=== PATIENT | male | born 1975 | race Caucasian/White ===

== ENCOUNTER 2018-10-04 10:19 | Inpatient (IN) | payer BC, OTHER ==
[~2018-10-04] VITALS: Ht 185.4 cm; Wt 93.9 kg
[2018-10-04 07:00] VITALS: BP_SYST 137
[2018-10-04 10:25] VITALS: BP_SYST 144
[2018-10-04] MEDS ORDERED: NACL 0.9% 1,000 ML IV ONE ×2 (10:35→14:30)
[2018-10-04] MEDS ORDERED: MORPHINE 4 MG/ML INJ. SYRINGE IVP ONE ×2 (10:45→13:30)
[2018-10-04 11:03] LABS: RED BLOOD CELL COUNT(AUTO) 5.08 MIL/uL (4.2-6.2); WHITE BLOOD COUNT (AUTO) 7.8 K/uL (4.8-10.8)
[2018-10-04 11:04] LABS: BASOPHILS % (AUTO) 0.5 % (0.0-2.0); EOSINOPHILS % (AUTO) 0.5 % (0.0-4.0); HEMATOCRIT 44.7 % (36-54); LYMPHOCYTES % (AUTO) 19.9 % (20.5-51.5); MEAN CORPUSCULAR HEMOGLOBIN 30 pg (27-31); MEAN CORPUSCULAR HGB CONC 34 % (32-36); MEAN CORPUSCULAR VOLUME 88 fL (79.0-98.0); MONOCYTES % (AUTO) 6.5 % (1.7-9.3); NEUTROPHILS % (AUTO) 72.6 % (40.0-70.0); PLATELET COUNT (AUTO) 276 K/uL (130-430); RED CELL DISTRIBUTION WIDTH 12.8 % (9.0-15.0)
[2018-10-04 11:05] LABS: LYMPHOCYTES # (AUTO) 1.6 K/uL (1.0-5.5); MONOCYTES # (AUTO) 0.5 K/uL (0.0-1.0); NEUTROPHILS # (AUTO) 5.7 K/uL (1.8-7.7)
[2018-10-04 11:12] LABS: CALCIUM 8.7 mg/dL (8.4-11.0); CREATININE 0.81 mg/dL (0.55-1.30); POTASSIUM 3.9 mmol/L (3.5-5.1)
[2018-10-04 11:16] LABS: ALBUMIN 3.9 g/dL (3.4-4.8); TOTAL BILIRUBIN 0.2 mg/dL (0.0-1.0)
[2018-10-04 11:21] LABS: PROTHROMBIN TIME 10.4 SECS (9.5-12.5)
[2018-10-04] MEDS ORDERED: GADOPENTETATE DIMEGLUMINE 15 ML VIAL IV ONE (11:38)
[2018-10-04 16:08] LABS: BILIRUBIN,URINE NEGATIVE (NEGATIVE); BLOOD, URINE NEGATIVE (NEGATIVE); CLARITY/URINE CLEAR (CLEAR); COLOR,URINE YELLOW (YELLOW); GLUCOSE,URINE NEGATIVE (NEGATIVE); KETONES,URINE NEGATIVE (NEGATIVE); LEUKOCYTE ESTERASE ,URINE NEGATIVE (NEGATIVE); NITRITE, URINE NEGATIVE (NEGATIVE); PH,URINE 6.5 (5.0-8.0); PROTEIN URINE NEGATIVE (NEGATIVE); UROBILINOGEN,URINE 0.2 (0.2-1.0)
[2018-10-04] MEDS ORDERED: VENL75CA PO (16:31)
[2018-10-04] MEDS ORDERED: DEXAMETHASONE SOD PHOSPHATE 10 MG/ML VIAL IVP ONE (16:45)
[2018-10-04] MEDS ORDERED: DEXAMETHASONE SOD PHOSPHATE 10 MG/ML VIAL ONE (16:54)
[2018-10-04 20:54] VITALS: BP_SYST 142
[2018-10-04] MEDS: MORPHINE 4 MG/ML INJ. SYRINGE IVP PRN (22:02)
[2018-10-04] MEDS ORDERED: ONDANSETRON HCL 4 MG/2 ML VIAL IVP PRN (23:30)
[2018-10-04] MEDS ORDERED: ACETAMINOPHEN 325 MG TABLET PO PRN (23:30)
[2018-10-05 00:09] VITALS: BP_SYST 114; BP_SYST 137
[2018-10-05] MEDS: MORPHINE 4 MG/ML INJ. SYRINGE IVP PRN ×3 (01:16→08:29)
[2018-10-05] MEDS ORDERED: DEXAMETHASONE SOD PHOSPHATE 4 MG/ML VIAL IVP ONE (04:30)
[2018-10-05 06:16] LABS: ALBUMIN 3.7 g/dL (3.4-4.8); CALCIUM 8.6 mg/dL (8.4-11.0); CREATININE 0.79 mg/dL (0.55-1.30); POTASSIUM 4.2 mmol/L (3.5-5.1); TOTAL BILIRUBIN 0.2 mg/dL (0.0-1.0)
[2018-10-05] MEDS: IPRATROPIUM BROM 0.5 MG/2.5 ML VIAL.NEB (ATROVENT) INH SCH ×2 (07:00→11:00)
[2018-10-05 08:20] VITALS: BP_SYST 106
[2018-10-05 08:40] LABS: HEMATOCRIT 43.3 % (36-54); HEMOGLOBIN 14.7 g/dL (14.0-18.0); MEAN CORPUSCULAR HEMOGLOBIN 30 pg (27-31); MEAN CORPUSCULAR HGB CONC 34 % (32-36); MEAN CORPUSCULAR VOLUME 88 fL (79.0-98.0); NEUTROPHILS % (AUTO) 84.3 % (40.0-70.0); PLATELET COUNT (AUTO) 293 K/uL (130-430); RED BLOOD CELL COUNT(AUTO) 4.93 MIL/uL (4.2-6.2); RED CELL DISTRIBUTION WIDTH 13.1 % (9.0-15.0); WHITE BLOOD COUNT (AUTO) 10.5 K/uL (4.8-10.8)
[2018-10-05 08:41] LABS: BASOPHILS % (AUTO) 0.1 % (0.0-2.0); EOSINOPHILS % (AUTO) 0.1 % (0.0-4.0); LYMPHOCYTES # (AUTO) 1.2 K/uL (1.0-5.5); LYMPHOCYTES % (AUTO) 11.1 % (20.5-51.5); MONOCYTES # (AUTO) 0.5 K/uL (0.0-1.0); MONOCYTES % (AUTO) 4.4 % (1.7-9.3); NEUTROPHILS # (AUTO) 8.8 K/uL (1.8-7.7)
[2018-10-05] MEDS: Effexor XR 37.5 MG PO SCH (09:28)
[2018-10-05 11:35] VITALS: BP_SYST 138
[2018-10-05] MEDS ORDERED: PREGABALIN 25 MG CAPSULE (LYRICA) PO ONE (12:30)
[2018-10-05] MEDS: OXYCODONE/ACETAMINOPHEN 5-325 TABLET PO PRN ×3 (12:49→21:13)
[2018-10-05] MEDS ORDERED: IPRATROPIUM BROM 0.5 MG/2.5 ML VIAL.NEB (ATROVENT) INH PRN (13:00)
[2018-10-05 15:47] VITALS: BP_SYST 125
[2018-10-05] MEDS ORDERED: PHENYLEPH/MINERAL OIL/PETROLAT 45 GM OINT.APPL TP PRN (16:45)
[2018-10-05] MEDS: DEXAMETHASONE SOD PHOSPHATE 10 MG/ML VIAL IVP SCH (16:58)
[2018-10-05 20:05] VITALS: BP_SYST 127
[2018-10-06] VITALS (7 sets, daily range): BP systolic 116–130
[2018-10-06] MEDS: DEXAMETHASONE SOD PHOSPHATE 10 MG/ML VIAL IVP SCH ×5 (05:22→23:43)
[2018-10-06] MEDS: OXYCODONE/ACETAMINOPHEN 5-325 TABLET PO PRN ×5 (05:26→23:42)
[2018-10-06] MEDS: PREGABALIN 25 MG CAPSULE (LYRICA) PO SCH (08:46)
[2018-10-06] MEDS: Effexor XR 37.5 MG PO SCH (08:48)
[2018-10-06] MEDS ORDERED: DOCUSATE SODIUM 250 MG CAPSULE PO ONE (13:00)
[2018-10-06] MEDS: DOCUSATE SODIUM 250 MG CAPSULE PO SCH (21:18)
[2018-10-07 00:27] VITALS: BP_SYST 125
[2018-10-07] MEDS: DEXAMETHASONE SOD PHOSPHATE 10 MG/ML VIAL IVP SCH ×2 (06:05→11:12)
[2018-10-07 08:04] VITALS: BP_SYST 128
[2018-10-07] MEDS: DOCUSATE SODIUM 250 MG CAPSULE PO SCH (08:07)
[2018-10-07] MEDS: PREGABALIN 25 MG CAPSULE (LYRICA) PO SCH (08:07)
[2018-10-07] MEDS: Effexor XR 37.5 MG PO SCH (08:08)
[2018-10-07 09:04] VITALS: BP_SYST 125; BP_SYST 128
[2018-10-07] MEDS: OXYCODONE/ACETAMINOPHEN 5-325 TABLET PO PRN (10:15)
[2018-10-07] MEDS ORDERED: DEC4 PO (12:42)
[2018-10-07] MEDS ORDERED: LYR25 PO (12:42)
[2018-10-07 12:46] VITALS: BP_SYST 125
== END 2018-10-07 13:00 | disposition home or self-care (01) | DRG 552 ==
LOC: SED 10:19 → SMU 19:21
PROVIDERS: ADMIT Internal Medicine; ATTEND Internal Medicine
DX: M54.5 Low back pain (principal); K62.89 Other specified diseases of anus and rectum; E78.5 Hyperlipidemia, unspecified; Z79.899 Other long term (current) drug therapy
CPT/HCPCS: 36415; 72158; 80053; 81003; 85025; 85610-TC; 96361; 96374; 96375; 96376; 99285; A9579; J1100; J2270; J7030

== ENCOUNTER 2019-03-29 11:59 | Emergency (ER) | payer BC, OTHER ==
[~2019-03-29] VITALS: Ht 185.4 cm; Wt 90.3 kg
[~2019-03-29 11:59] MED LIST: DEC4 PO; LYR25 PO; VENL75CA PO
[2019-03-29 12:02] VITALS: BP_SYST 115
[2019-03-29 12:56] VITALS: BP_SYST 112
== END 2019-03-29 12:58 | disposition home or self-care (01) ==
LOC: SED 11:59
DX: S62.602A Fracture of unspecified phalanx of right middle finger, initial encounter for closed fracture (principal); S61.302A Unspecified open wound of right middle finger with damage to nail, initial encounter; E78.00 Pure hypercholesterolemia, unspecified; Z79.899 Other long term (current) drug therapy; W23.1XXA Caught, crushed, jammed, or pinched between stationary objects, initial encounter; Y93.89 Activity, other specified; Y92.89 Other specified places as the place of occurrence of the external cause; Y99.8 Other external cause status
CPT/HCPCS: 99283

== ENCOUNTER 2019-05-28 18:17 | Emergency (ER) | payer BC ==
[~2019-05-28] VITALS: Ht 185.4 cm; Wt 88.5 kg
[2019-05-28 18:17] VITALS: BP_SYST 143
--- NOTE | 2019-05-28 18:17 | NUR ---
Patient triaged and placed in waiting room. VSS and patient appears in no acute distress at this time. Accompanied by , awaiting available bed, and MD notified of need for MSE.
--- NOTE | 2019-05-28 18:46 | NUR ---
BROUGHT BACK TO BED #3 AND REPORT GIVEN TO TORITO
[2019-05-28] MEDS ORDERED: NACL 0.9% 1,000 ML IV ONE (19:00)
[2019-05-28] MEDS ORDERED: ASPIRIN 81 MG TAB.CHEW PO ONE (19:00)
--- NOTE | 2019-05-28 19:15 | NUR ---
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 Pt c/o left sided chest pain with night sweats, lightheadedness, and insomnia since yesterday. Pt AAOx4, non-diaphoretic at this time, VSS, reports intermittent left sided and non-radiating chest pain.
[2019-05-28 19:19] LABS: BASOPHILS # (AUTO) 0.1 K/uL (0.0-0.2); BASOPHILS % (AUTO) 0.7 % (0.0-2.0); EOSINOPHILS # (AUTO) 0.1 K/uL (0.0-0.4); EOSINOPHILS % (AUTO) 0.8 % (0.0-4.0); HEMATOCRIT 45.2 % (36-54); HEMOGLOBIN 15.3 g/dL (14.0-18.0); LYMPHOCYTES # (AUTO) 2.1 K/uL (1.0-5.5); MEAN CORPUSCULAR HEMOGLOBIN 29 pg (27-31); MEAN CORPUSCULAR HGB CONC 34 % (32-36); MEAN CORPUSCULAR VOLUME 87 fL (79.0-98.0); MONOCYTES # (AUTO) 0.6 K/uL (0.0-1.0); MONOCYTES % (AUTO) 6.8 % (1.7-9.3); NEUTROPHILS # (AUTO) 5.9 K/uL (1.8-7.7); NEUTROPHILS % (AUTO) 67.7 % (40.0-70.0); PLATELET COUNT (AUTO) 214 K/uL (130-430); RED BLOOD CELL COUNT(AUTO) 5.21 MIL/uL (4.2-6.2); RED CELL DISTRIBUTION WIDTH 14.4 % (9.0-15.0); WHITE BLOOD COUNT (AUTO) 8.6 K/uL (4.8-10.8)
--- NOTE | 2019-05-28 19:30 | NUR ---
Dr. Hair at bedside.
[2019-05-28 19:40] LABS: ANION GAP 3 (5-15); CALCIUM 8.6 mg/dL (8.4-11.0); CHLORIDE 102 mmol/L (98-107); GLUCOSE 100 mg/dL (70-99); POTASSIUM 3.9 mmol/L (3.5-5.1); SODIUM SERUM 135 mmol/L (136-145); UREA NITROGEN, BLOOD 18 mg/dL (8-21)
[2019-05-28 19:42] LABS: GFR AFRICAN AMERICAN 134 mL/min (>90)
[2019-05-28 19:53] LABS: ALANINE AMINOTRANSFERASE 40 U/L (12-78); ALBUMIN 4.1 g/dL (3.4-4.8); ASPARTATE AMINOTRANSFERASE 21 U/L (10-37); TOTAL BILIRUBIN 0.3 mg/dL (0.0-1.0)
[2019-05-28 21:43] LABS: BILIRUBIN,URINE NEGATIVE (NEGATIVE); BLOOD, URINE NEGATIVE (NEGATIVE); CLARITY/URINE CLEAR (CLEAR); COLOR,URINE YELLOW (YELLOW); GLUCOSE,URINE NEGATIVE (NEGATIVE); KETONES,URINE NEGATIVE (NEGATIVE); LEUKOCYTE ESTERASE ,URINE NEGATIVE (NEGATIVE); NITRITE, URINE NEGATIVE (NEGATIVE); PROTEIN URINE NEGATIVE (NEGATIVE); UROBILINOGEN,URINE 0.2 (0.2-1.0)
[2019-05-28 22:20] VITALS: BP_SYST 132
--- NOTE | 2019-05-28 22:20 | NUR ---
Patient given written and verbal discharge instructions and verbalizes understanding. ER MD discussed with patient the results and treatment provided. Patient in stable condition. ID arm band removed. IV catheter removed intact and dressing applied, no active bleeding. Patient educated on pain management and to follow up with PMD. Pain Scale 1/10. Opportunity for questions provided and answered. Medication side effect fact sheet provided.
== END 2019-05-28 22:24 | disposition home or self-care (01) ==
LOC: SED 18:17
DX: R07.9 Chest pain, unspecified (principal); E78.00 Pure hypercholesterolemia, unspecified; Z79.899 Other long term (current) drug therapy
CPT/HCPCS: 36415; 71045; 80053; 81003; 84484; 85025; 93005; 99284; J7030